=== PATIENT | male | born 1990 | race Caucasian/White ===

== ENCOUNTER 2020-10-21 17:45 | Outpatient (CLI) | payer BC ==
--- NOTE | 2020-10-22 10:34 | XRAY Report ---
PROCEDURE: Hand 3 View LT INDICATIONS: LEFT HAND PAIN TECHNIQUE: 3 views of the hand(s) acquired. COMPARISON: None. FINDINGS: Bones: No fractures or dislocations. No suspicious bony lesions. Soft tissues: No suspicious soft tissue calcifications. IMPRESSION: Left hand without acute fracture or dislocation. If there is persistent clinical concern for a radiographically occult fracture given mechanism of inj ury, recommend immobilization and repeat imaging in 10 to 14 days. Reviewed by: Trung Chang MD on 10/22/2020 10:33 AM [facility] Approved by: Trung Chang MD on 10/22/2020 10:33 AM [facility] Station ID: [id number]
== END 2020-10-21 23:59 | disposition home or self-care (01) ==
LOC: DI.S 17:45
PROVIDERS: ATTEND Physician Assistant
DX: M79.642 Pain in left hand (principal)